=== PATIENT | male | born 1980 | race Caucasian/White ===

== ENCOUNTER 2024-08-23 17:48 | Inpatient (IN) | payer BC ==
[~2024-08-23] VITALS: Ht 188 cm; Wt 115.2 kg
[2024-08-23] MEDS ORDERED: heparin 10,000 units/1 ML INJ IV ONE (18:00)
[2024-08-23] MEDS: heparin 25,000 UNIT/250ml bag 250 ML IV PRN (18:10)
[2024-08-23] MEDS: HEPARIN DRIP INITAL BOLUS --- DO NOT GIVE/ORDER MC ONE (18:11)
[2024-08-23 18:34] LABS: BASOPHILS # (AUTO) 0.1 X10'3 (0-0.2); BASOPHILS % (AUTO) 0.7 % (0-1); EOSINOPHILS # (AUTO) 0.1 X10'3 (0-0.9); EOSINOPHILS % (AUTO) 0.7 % (0-6); HEMATOCRIT 46.5 % (42.0-52.0); HEMOGLOBIN 16.2 g/dl (14.0-17.9); LYMPHOCYTES # (AUTO) 1.3 X10'3 (1.1-4.8); LYMPHOCYTES % (AUTO) 15.5 % (21-51); MEAN CORPUSCULAR HEMOGLOBIN 34.6 PG (27.0-31.0); MEAN CORPUSCULAR HGB CONC 34.9 g/dL (33.0-36.5); MEAN CORPUSCULAR VOLUME 99.1 FL (78-98); MEAN PLATELET VOLUME 7.9 FL (7.4-10.4); MONOCYTES # (AUTO) 0.5 X10'3 (0-0.9); MONOCYTES % (AUTO) 6.5 % (2-12); NEUTROPHILS # (AUTO) 6.4 X10'3 (1.8-7.7); NEUTROPHILS % (AUTO) 76.6 % (42-75); PLATELET COUNT 127 X10'3 (140-440); RED BLOOD COUNT 4.69 X10'6 (4.70-6.10); RED CELL DISTRIBUTION WIDTH 13.7 % (11.5-14.5); WHITE BLOOD COUNT 8.3 X10'3 (4.5-11.0)
--- NOTE | 2024-08-23 18:45 | Physician Documentation ---
History of Present Illness ~ Chief Complaint: Chest Pain Stated Complaint: NSTEMI TRANSFER Time Seen by MD: 18:34 HPI Patient presents to the emergency room as transfer from [facility] for NSTEMI. He was states he woke up this morning began have if chest pain shortly then after. He was states he had a hard weekend drinking significant amount of alcohol. He does smoke and it was high blood pressure. No current chest pain. Patient placed on aspirin and heparin for transfer. Medication Reconciliation Allergies: Coded Allergies: No Known Allergies (Unverified , 08/23/24) Scheduled Amlodipine Besylate/Benazepril 10/40 MG* (Amlodipine-Benazepril 10/40 MG*), 1 CAP PO DAILY, (Reported) Anastrozole (Anastrozole), 1 TAB PO DAILY, (Reported) Chlorthalidone (Chlorthalidone), 1 TAB PO DAILY, (Reported) Clonidine HCl (Clonidine HCl), 1 TAB PO DAILY, (Reported) Duloxetine Hcl* (Cymbalta*), 1 CAP PO DAILY, (Reported) Omeprazole (Prilosec), 1 CAP PO DAILY, (Reported) Tadalafil* (Cialis*), 1 TAB PO DAILY, (Reported) Review of Systems ROS All review of systems negative except as per HPI Physical Exam Vital Signs: Temperature: 98.7, Heart Rate: 103, Respiratory Rate: 20, BP: 129/100, Pulse Oximetry: 96, Weight: 118.000 Oxygen Flow Rate: 0 Physical Exam General: Patient is awake, alert, oriented x4 in no acute distress and well appearing.~ Head: Normocephalic and atraumatic. Eyes: Conjunctival normal. EOMI. PERRL. ENT: Mucous membranes moist. Neck: Supple, trachea is midline. Chest: Clear to auscultation bilaterally without rales, rhonchi, or wheezes. There is no accessory muscle use or retractions. Cardiac: Tachycardic and regular without murmurs, gallops, or rubs. Abd: Soft, nondistended, nontender, with normoactive bowel sounds. No guarding, rebound, or rigidity. Extremities: Normal strength. Normal range of motion. No deformities or edema. No calf tenderness to palpation Progress Results/Orders Results/Orders Orders - CLIFTON SANCHEZ MD Hospitalist (08/23/24 18:48) Fill Out Med Reconciliation (08/23/24 18:48) Cardiac Ptt (08/24/24 00:10) Medications Received in ER Medications (Trade) Dose Ordered Sig/Christa Route PRN Reason Start Time Stop Time Status Last Admin Dose Admin Heparin Sodium/ Dextrose 250 ml @ 10 mls/hr Q25H PRN IV TO MAINTAIN PTT WITHIN RANGE 08/23/24 18:05 08/23/24 18:10 10 MLS/HR Vital Signs 08/23/24 08/23/24 08/23/24 18:18 18:49 18:51 Temp 98.7 Pulse 103 100 Resp 20 15 19 B/P (MAP) 129/100 135/76 (95) Pulse Ox 96 96 O2 Flow Rate 0 Laboratory Tests Test 08/23/24 18:26 White Blood Count 8.3 Red Blood Count 4.69 L Hemoglobin 16.2 Hematocrit 46.5 Mean Corpuscular Volume 99.1 H Mean Corpuscular Hemoglobin 34.6 H Mean Corpuscular Hemoglobin Concent 34.9 Red Cell Distribution Width 13.7 Platelet Count 127 L Mean Platelet Volume 7.9 Neutrophils (%) (Auto) 76.6 H Lymphocytes (%) (Auto) 15.5 L Monocytes (%) (Auto) 6.5 Eosinophils (%) (Auto) 0.7 Basophils (%) (Auto) 0.7 Neutrophils # (Auto) 6.4 Lymphocytes # (Auto) 1.3 Monocytes # (Auto) 0.5 Eosinophils # (Auto) 0.1 Basophils # (Auto) 0.1 CBC Comment APTT (Heparin Protocol) 52 D-Dimer 0.40 D-Dimer Comment Coagulation Comments Sodium Level 134 L Potassium Level 3.2 L Chloride Level 97 L Carbon Dioxide Level 25.5 Anion Gap 12 Blood Urea Nitrogen 10 Creatinine 0.96 Estimated GFR/1.73 m2 85 BUN/Creatinine Ratio 10.4 Glucose Level 136 H Calcium Level 8.4 L Total Bilirubin 1.1 H Aspartate Amino Transf (AST/SGOT) 100 H Alanine Aminotransferase (ALT/SGPT) 69 Alkaline Phosphatase 92 Troponin I High Sensitivity 363 *H Pro-B-Type Natriuretic Peptide < 30 Total Protein 7.9 Albumin 3.7 Globulin 4.2 Albumin/Globulin Ratio 0.9 L Chemistry Comments EKG/XRAY/CT/US/VASC/MRI EKG : Additional Comment EKG interpreted by myself shows time of 18 30, rate 105, sinus tachycardia, normal axis, no ST changes Chest X-Ray : Additional Comments Exam: CHEST,SINGLE VIEW CHEST RADIOGRAPH Indication: CP Technique: Single frontal view of the chest was obtained COMPARISON: None FINDINGS: Lines and Tubes: None Lungs: Clear Pleura: No effusion. No pneumothorax. Cardiomediastinal contours: Unremarkable Bones: Unremarkable IMPRESSION: No abnormality. Medical Decision Making Findings Patient presented to the emergency room transferred from [facility] for NSTEMI. Differentials include but are not limited to ACS, pulmonary embolism, pneumothorax, musculoskeletal pain. Repeat labs confirm that patient does have elevated troponin. Heparin has been continued. EKG reassuring for no ST elevation. D-dimer reassuring. Departure Admitted to Inpatient Unit: yes, to hospitalist Impression: Primary Impression: NSTEMI (non-ST elevated myocardial infarction) Referrals: NO PRIMARY CARE PROVIDER (PCP) Critical Care Note Total Time (mins): 45 Critical Care Note The very real possibility of a deterioration of this patient's condition required the highest level of my preparedness for sudden, emergent intervention. I provided critical care services, which included medication orders, frequent reevaluations of the patient's condition and response to treatment, ordering and reviewing test results, and discussing the case with various consultants. Excl udes time spent performing separately billable procedures. The critical care time associated with the care of the patient was 45 minutes not counting procedures Signature Scribe Signature: No scribe Attestation: The note accurately reflects work and decisions made by me.Clifton Sanchez MD 08/23/24 20:00 CLIFTON SANCHEZ MD August 23, 2024 18:45
[2024-08-23 18:52] LABS: ALANINE AMINOTRANSFERASE 69 U/L (12-78); ALBUMIN 3.7 G/DL (3.4-5.0); ALBUMIN/GLOBULIN RATIO 0.9 (1.1-1.5); ALKALINE PHOSPHATASE 92 IU/L (46-116); ANION GAP 12 (8-16); ASPARTATE AMINO TRANSFERASE 100 U/L (10-37); BILIRUBIN,TOTAL 1.1 MG/DL (0.1-1.0); BLOOD UREA NITROGEN 10 MG/DL (7-18); BUN/CREATININE RATIO 10.4 (10.0-20.0); CALCIUM 8.4 MG/DL (8.5-10.1); CHLORIDE 97 MMOL/L (99-107); CREATININE 0.96 MG/DL (0.60-1.10); GLUCOSE 136 MG/DL (70-104); POTASSIUM 3.2 MMOL/L (3.5-5.1); SODIUM 134 MMOL/L (135-145); TOTAL CARBON DIOXIDE 25.5 MMOL/L (24-32); TOTAL PROTEIN 7.9 G/DL (6.4-8.2); eCRCL 115 ML/MIN; eGFR 85 ML/MIN
[2024-08-23] MEDS ORDERED: TADA5TAB2 PO (19:07)
[2024-08-23] MEDS ORDERED: OMEP40CA21 PO (19:07)
[2024-08-23] MEDS ORDERED: ANAS1TAB24 PO (19:07)
[2024-08-23] MEDS ORDERED: DULO-31 PO (19:07)
[2024-08-23] MEDS ORDERED: CHLO25TA10 PO (19:07)
[2024-08-23] MEDS ORDERED: CLON0.1T2 PO (19:07)
[2024-08-23] MEDS ORDERED: AMLO-139 PO (19:07)
--- NOTE | 2024-08-23 19:08 | RADIOLOGY REPORT ---
CHEST RADIOGRAPH Indication: CP Technique: Single frontal view of the chest was obtained COMPARISON: None FINDINGS: Lines and Tubes: None Lungs: Clear Pleura: No effusion. No pneumothorax. Cardiomediastinal contours: Unremarkable Bones: Unremarkable IMPRESSION: No abnormality.
[2024-08-23 19:11] LABS: PRO BRAIN NATRIURETIC PEPTIDE < 30 PG/ML (0-125)
[2024-08-23] MEDS: MESSAGE TO NURSING IV ONE ×2 (20:01→23:45)
[2024-08-23] MEDS ORDERED: ondansetron/PF 4mg/2ml inj IV PRN (20:05)
[2024-08-23] MEDS ORDERED: nitroGLYCERIN 0.4mg SUBLingual tab SL PRN (20:05)
[2024-08-23] MEDS ORDERED: potassium Cl 40MEQ/1/2NS 520ml 520 ML IV PRN (20:05)
[2024-08-23] MEDS ORDERED: magnesium sulf-water 4G/100mL 100 ML IV PRN (20:05)
[2024-08-23] MEDS ORDERED: magnesium Cl slow-release 64mg tablet PO PRN (20:05)
[2024-08-23] MEDS ORDERED: magnesium hydroxide 30ml (MOM) UD suspension PO PRN (20:05)
[2024-08-23] MEDS ORDERED: acetaminophen 325mg tablet PO PRN (20:05)
[2024-08-23] MEDS ORDERED: potassium Cl 20 mEq SR tablet PO PRN (20:05)
[2024-08-23] MEDS ORDERED: magnesium sulf-water 2g/50mL 50 ML IV PRN (20:05)
[2024-08-23] MEDS ORDERED: mag hydrox/Alum hydrox/simeth 30ml oral suspension PO PRN (20:05)
[2024-08-23] MEDS ORDERED: morphine 2 MG/ML inj. syringe IV PRN ×2 (20:05)
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
[2024-08-23 20:25] LABS: HEMOGLOBIN A1C 5.8 % (4.5-6.2)
[2024-08-23] MEDS ORDERED: haloperidol 5mg tablet PO PRN (20:25)
[2024-08-23] MEDS: diazepam 5mg tablet PO ONE (20:32)
[2024-08-23] MEDS: HEPARIN DRIP-CARDIAC**PHARMACIST-TO-DOSE IV SCH (20:33)
[2024-08-23] MEDS: atorvastatin 20mg tablet PO SCH (20:35)
[2024-08-23] MEDS: normal saline 1000ml 1,000 ML IV SCH (20:36)
[2024-08-23] MEDS: thiamine 100mg/ml 2ml inj. IV SCH (20:58)
[2024-08-23] MEDS: folic acid 1mg/0.2ml inj IV SCH (20:58)
[2024-08-23 21:35] VITALS: BP 145/88; PULSE 104; RESP 14; TEMP 97.7; O2SAT 96
[2024-08-24] VITALS (8 sets, daily range): BP systolic 121–157; BP diastolic 74–89; PULSE 91–105; RESP 14–20; TEMP 97–98.3; O2SAT 93–98
[2024-08-24] MEDS: diazepam inj 5 MG/ML inj. IV PRN (00:31)
[2024-08-24] MEDS: MESSAGE TO NURSING IV ONE ×4 (01:40→22:55)
[2024-08-24] MEDS: heparin 10,000 units/1 ML INJ IV PRN (01:56)
[2024-08-24 03:24] LABS: BASOPHILS # (AUTO) 0.1 X10'3 (0-0.2); BASOPHILS % (AUTO) 1.3 % (0-1); EOSINOPHILS # (AUTO) 0.2 X10'3 (0-0.9); EOSINOPHILS % (AUTO) 1.8 % (0-6); HEMATOCRIT 43.6 % (42.0-52.0); HEMOGLOBIN 15.2 g/dl (14.0-17.9); LYMPHOCYTES # (AUTO) 1.9 X10'3 (1.1-4.8); LYMPHOCYTES % (AUTO) 22.3 % (21-51); MEAN CORPUSCULAR HEMOGLOBIN 34.4 PG (27.0-31.0); MEAN CORPUSCULAR HGB CONC 34.7 g/dL (33.0-36.5); MEAN CORPUSCULAR VOLUME 99.2 FL (78-98); MEAN PLATELET VOLUME 8.8 FL (7.4-10.4); MONOCYTES # (AUTO) 0.6 X10'3 (0-0.9); MONOCYTES % (AUTO) 7.5 % (2-12); NEUTROPHILS # (AUTO) 5.7 X10'3 (1.8-7.7); NEUTROPHILS % (AUTO) 67.1 % (42-75); PLATELET COUNT 94 X10'3 (140-440); RED CELL DISTRIBUTION WIDTH 13.3 % (11.5-14.5); WHITE BLOOD COUNT 8.5 X10'3 (4.5-11.0)
[2024-08-24 03:40] LABS: ALANINE AMINOTRANSFERASE 63 U/L (12-78); ALBUMIN 3.7 G/DL (3.4-5.0); ALBUMIN/GLOBULIN RATIO 0.9 (1.1-1.5); ALKALINE PHOSPHATASE 90 IU/L (46-116); AMYLASE 54 U/L (25-115); ANION GAP 10 (8-16); ASPARTATE AMINO TRANSFERASE 91 U/L (10-37); BILIRUBIN,TOTAL 1.7 MG/DL (0.1-1.0); BLOOD UREA NITROGEN 8 MG/DL (7-18); BUN/CREATININE RATIO 8.5 (10.0-20.0); CALCIUM 8.6 MG/DL (8.5-10.1); CHLORIDE 101 MMOL/L (99-107); CREATININE 0.94 MG/DL (0.60-1.10); GLUCOSE 120 MG/DL (70-104); LIPASE 36 U/L (16-77); MAGNESIUM 1.5 MG/DL (1.5-2.4); PHOSPHORUS 2.5 MG/DL (2.3-4.5); SODIUM 138 MMOL/L (135-145); TOTAL CARBON DIOXIDE 27.1 MMOL/L (24-32); TOTAL PROTEIN 7.8 G/DL (6.4-8.2); eCRCL 118 ML/MIN; eGFR 88 ML/MIN
[2024-08-24] MEDS: potassium Cl 20 mEq SR tablet PO STA (04:19)
[2024-08-24] MEDS: K and/or MAG REPLACEMENT MC SCH (08:00)
--- NOTE | 2024-08-24 08:13 | ELECTROCARDIOGRAPH REPORT ---
[facility] Test Date: 2024-08-23 Test Time: 18:30:59 Pat Name: JELANI CONDON Department: EMERGENCY ROOM Room: [place] [address] A Gender: M Spindraw Operator: GEOVANNA : 1980 Requested By: FRANK CARNEY Order Number: [id number] Reading MD: Dr. Ag Rush Measurements Intervals [place] Rate: 105 P: 16 NH: 142 QRS: 53 QRSD: 98 T: 0 QT: 364 QTc: 482 Interpretive Statements Sinus tachycardia Borderline prolonged QT interval Electronically Signed On 08-25-2024 15:44:[address] Ag Rush Please click the below link to view image of tracing.
[2024-08-24] MEDS: cloNIDine 0.1 mg tablet PO SCH (08:49)
[2024-08-24] MEDS: chlorthalidone 25mg tablet PO SCH (08:50)
[2024-08-24] MEDS: lisinopril 20mg tablet PO SCH (08:50)
[2024-08-24] MEDS: aspirin 81mg, enteric-coated 1 TAB TABLET.DR PO SCH (08:51)
[2024-08-24] MEDS: amLODIPine 5mg tablet PO SCH (08:51)
[2024-08-24] MEDS: carVEDilol 3.125mg tablet PO SCH (08:51)
[2024-08-24] MEDS: docusate sod 100mg capsule PO SCH (08:52)
[2024-08-24] MEDS: duloxetine 30mg CAPSULE.DR PO SCH (08:52)
[2024-08-24 10:15] LABS: BILIRUBIN,URINE NEGATIVE (Neg); COLOR,URINE YELLOW (Yellow); GLUCOSE, URINE NEGATIVE (Neg); KETONES,URINE NEGATIVE (Neg); LEUKOCYTE ESTERASE ,URINE NEGATIVE (Neg); OCCULT BLOOD,URINE NEGATIVE (Neg); PH,URINE 7.5 (4.8-8.0); PROTEIN,URINE NEGATIVE (Neg)
[2024-08-24 10:30] LABS: NITRITES, URINE NEGATIVE (Neg); UA COLLECTION TYPE VOIDED
[2024-08-24 10:31] LABS: CLARITY,URINE CLOUDY (Clear)
[2024-08-24 10:38] LABS: SQUAMOUS EPITHELIAL CELL,UR FEW /LPF (FEW)
[2024-08-24 10:39] LABS: BACTERIA,URINE NONE SEEN /HPF (Neg); RBC,URINE NONE SEEN /HPF (0-2)
[2024-08-24 10:40] LABS: WBC,URINE NONE SEEN /HPF (0-4)
[2024-08-24] MEDS: potassium Cl 20 mEq SR tablet PO PRN (10:50)
[2024-08-24 11:06] LABS: URINE AMPHETAMINE SCREEN NEGATIVE (Neg); URINE BARBITUATE SCREEN NEGATIVE (Neg); URINE BENZODIAZEPINES SCREEN POSITIVE (Neg); URINE CANNABINOID SCREEN NEGATIVE (Neg); URINE COCAINE SCREEN NEGATIVE (Neg); URINE METHADONE SCREEN NEGATIVE (Neg); URINE OPIATE SCREEN NEGATIVE (Neg); URINE PHENCYCLIDINE SCREEN NEGATIVE (Neg)
[2024-08-24] MEDS ORDERED: iohexol 350MG/ML 100ml bottle IV ONE (13:10)
[2024-08-24 13:21] LABS: INR 1.3 INR; PROTHROMBIN TIME 12.8 SECONDS (9.0-12.0)
--- NOTE | 2024-08-24 13:37 | RADIOLOGY REPORT ---
INDICATION: Abdominal pain TECHNIQUE: Multiple real-time sonographic images of the abdomen were obtained. COMPARISON: None FINDINGS: The liver is heterogeneous in echogenicity. The liver measures 22cm. No intrahepatic saravanan iary ductal dilatation is noted. The gallbladder wall measures 0.3 cm and is unremarkable. No gallstones or sludge is seen. The commo n duct measures 0.3 cm and is unremarkable. No pericholecystic fluid is noted. The right kidney measures 15cm. No hydronephrosis. The pancreas is not well visualized due to obscuration from bowel gas. The visualized portions of the IVC and aorta are grossly unremarkable. IMPRESSION: Hepatic steatosis. Hepatomegaly
--- NOTE | 2024-08-24 14:39 | RADIOLOGY REPORT ---
EXAM: CT CTA CHEST PE W/ IV CONTRAST History: SOB Comparison Study: None TECHNIQUE: A digital label maker image was obtained. During the uneventful, intravenous administration of c ontrast material, multislice data acquisition was obtained through the chest. 3-D postprocessing is performed by technologist including MIP imaging Radiation Dose : CTDI vol 31.03 mGy, DLP 1027.92 mGy*cm. Findings: Lungs: The lungs are clear. Pleura: Unremarkable Heart/Great vessels: No cardiomegaly or pericardial effusion. No pulmonary embolism, aneurysm, or dis section. Mediastinum: Unremarkable Soft tissues/Bones: Unremarkable Mildly prominent gastroesophageal/ gastrosplenic lymph nodes. The partially visualized upper abdomen is within normal limits. Impression: 1. No evidence of a pulmonary embolism, aneurysm, or dissection. 2. Mildly prominent gastroesophageal / gastrosplenic lymph nodes, nonspecific.
--- NOTE | 2024-08-24 14:45 | CARDIOLOGY REPORT ---
APPROVED REPORT EXAM: Comprehensive 2D, Doppler, and color-flow Echocardiogram. Patient Location: 3018 A Blood Pressure: 157/89 mmHg Heart Rate: 102 bpm Rhythm: SINUS TACHYCARDIA Indications CHEST PAIN HS TROPONIN 363, 345, 350, 337 HYPERTENSION ALCOHOL USE Multiskill Operator: none Previous echo: none 2D Dimensions RVDd 3.5 cm LA Diam4.7 cm IVSd 1.2 (0.7-1.1cm) LVDd 5.3 cm PWd 1.3 (0.7-1.1cm) IVSs 1.3 (0.8-1.2cm) LVDs 3.8 (2.5-4.0cm) PWs 2.0 (0.8-1.2cm) LVOT Diameter 2.18 (1.8-2.4cm) LVEF(%) 55.4 (>50%) Ao Asc Diam.3.45 cmFS (%) 29.1 % SV 74.9 ml CO 7.4 L/min M-Mode Dimensions Left Atrium(MM) 3.91 (2.5-4.0cm) IVSd 0.91 (0.7-1.1cm) LVDd 5.26 (4.0-5.6cm) Aortic Root 3.83 (2.2-3.7cm) PWd 1.26 (0.7-1.1cm) Aortic Cusp Exc 2.22 (1.5-2.0cm) IVSs 1.39 cm MV EPSS 0.6 (<0.5cm) LVDs 3.70 (2.0-3.8cm) FS (%) 30 % PWs 1.87 cm ESV(Teich) 58.0 ml LVEF(%) 56 (>50%) Biplane 2D LA Volumes LA ESV Index 23.46 mL/m2 Aortic Valve AoV Peak Javi. 137.8 cm/s AoV VTI 20.4 cm AO Peak GR. 7.6 mmHg AO Mean GR. 4 mmHg LVOT VTI 24.99 cm LVOT Peak Javi. 124.3 cm/s ALEX(VTI)/BSA 4.59 cm2/m2 ALEX (VTI) 4.59 cm2 Mitral Valve MV E Velocity 64.0 cm/s MV Peak Gr. 4 mmHg MV DECEL TIME 166 ms MV A Velocity 84.5 cm/s MV PHT 38 ms E/A Ratio 0.8 MVA (PHT) 5.79 cm2 MV VGdo343.0 cm/s TDI Medial E' P. V 11.96 cm/s E/Medial E' 5.4 Pulmonary Vein S1 Velocity 68.6 cm/s D2 Velocity 45.4 cm/s PVa Vhzwjyjv93.9 cm/s PVa Tauhhbza70 msec LEFT VENTRICLE Normal LV size and function. Mild concentric hypertrophy. Overall LVEF is 55-60%. RIGHT VENTRICLE RV is normal size and function. ATRIA LA size is normal. AORTIC VALVE Trileaflet AV appears mildly sclerotic without stenosis. Trivial insufficiency. MITRAL VALVE Mild MV annular calcification without stenosis. Trace regurgitation. TRICUSPID VALVE TV appears structurally normal with trace regurgitation. PULMONIC VALVE Normal PV without stenosis, physiologic insufficiency. GREAT VESSELS Aortic root is dilated. The ascending aorta is normal in size. PERICARDIUM Normal pericardium. No effusion. Other Information Study Quality: Adequate Conclusion Overall LVEF is 55-60%. Normal LV size and function. Mild concentric hypertrophy. RV is normal size and function. Trileaflet AV appears mildly sclerotic without stenosis. Trivial insufficiency. Mild MV annular calcification without stenosis. Trace regurgitation. TV appears structurally normal with trace regurgitation. Normal PV without stenosis, physiologic insufficiency. Normal pericardium. No effusion.
[2024-08-24] MEDS: heparin 25,000 UNIT/250ml bag 250 ML IV PRN (16:21)
--- NOTE | 2024-08-24 16:34 | PROGRESS NOTE- Residence ---
Progress Note - Resident Providers to CC Resident Creating Document: LAVERNE BARGER, REINIER ~ Central Line/PICC still needed: No Rivera-Non Protocol Rivera Indications Met/Not Met: F/C Indications Not Met Antibiotic Timeout Antibiotic Ordered?: No Subjective Patient was comfortable at bedside. Denies anymore chest pain after he had received the Valium last night. States that he is anxious but no more chest tightness. Objective Vital Signs Date Time Temp Pulse Resp B/P (MAP) Pulse Ox O2 Delivery O2 Flow Rate FiO2 08/24/24 12:56 18 95 Room Air 08/24/24 11:00 97.7 95 121/74 (90) 08/24/24 08:00 0.0 Result Diagram: 08/24/24 0300 08/24/24 0725 General: Awake and Alert, no acute distress. HEENT: Conjunctiva pink, Sclera clear, Mucus Membranes moist. Resp: Unlabored. Lungs clear to auscultation bilaterally. Diminished basilar breath sounds Heart: Sinus tachycardia, normal S1 and S2 without murmur, rub or gallop. Abdomen: Soft and non tender no organomegaly Extremities: No cyanosis,clubbing or edema. Skin: Warm and Dry. Spider angioma across the neck Coagulation Studies Laboratory Tests Test 08/23/24 18:26 08/24/24 12:36 08/24/24 14:06 D-Dimer 0.40 MG/L FEU (0-0.50) D-Dimer Comment Prothrombin Time 12.8 SECONDS (9.0-12.0) H INR International Normalized Ratio 1.3 INR APTT (Heparin Protocol) 43 SECONDS (45-60) L Coagulation Comments Assessment Assessment 43-year-old male patient transferred from [place] for chest pain and possible NSTEMI. Plan Plan 1. Troponinemia: NSTEMI; PE to be ruled out 08/23/2024: EKG without ST elevation. Showing: Sinus tachycardia with heart rate of 105, normal axis deviation, normal MN and QRS interval. Troponin levels 363. Follow-up trending troponins. Follow-up echocardiogram. Follow-up lipid panel and hemoglobin A1c. The patient received 324 mg of aspirin at [facility]. Aspirin 81 mg daily. Atorvastatin 80 mg daily. Carvedilol 3.125 mg b.i.d. Nitroglycerin 0.4 mg sublingual p.r.n. Started on heparin drip with the other hospital, Continue heparin drip. Cardiology consult in a.m. NS at 100 mL/hour. 08/24/2024: - downtrending troponins - EKG continues to remain benign - consulted cardiology; continue the heparin drip. Lexiscan in a.m. NPO after midnight - CTA ruled out pulmonary embolism but revealed presence nonspecific GE and gastric lymphadenopathy - heart healthy diet -continue telemetry monitoring - p.r.n. NTG for recurrent chest pain 2. Alcohol use disorder: Alcohol withdrawal: 08/23/2024: The patient endorses that he has been drinking approximately 24 beers per week. The last time he drank was yesterday. Diazepam 10 mg once. Alcohol withdrawal protocol in place. Diazepam 10 mg IV q.3h PRN. Haloperidol 5 mg p.o. q.4h. Thiamine 200 mg IV t.i.d. x3 days. Then thiamine 100 mg p.o. daily. Folic acid 1 mg IV daily x3 days. Then folic acid 1 mg p.o. daily. Seizure precautions. Substance use navigator consulted. financial services auditor consulted. 08/24/2024: No further acute withdrawals noted. - received one dose Valium at 4:00 a.m. yesterday and has not required p.r.n. benzodiazepines anymore - continue folic acid and thiamine; continue alcohol withdrawal protocol 3. Hepatic steatosis: Spider angioma Albumin, INR normal. Mildly decreased platelets likely secondary to the heparin drip Abdominal ultrasound reveals hepatic steatosis Recommend carb controlled diet, alcohol cessation Recommend statin therapy at discharge 4. Hypertension: Carvedilol 3.125 mg daily. We will continue amlodipine/benazepril 10/40 mg, chlorthalidone 25 mg, clonidine 0.1 mg daily. 08/24/2024: Blood pressure well-controlled - current medication of amlodipine 10 mg, chlorthalidone, clonidine 0.1 mg, and Coreg 3.125 mg b.i.d. - we will change clonidine to p.r.n. 5. Anxiety: We will continue his home medication duloxetine 30 mg daily. 6. Hypogonadism: Use of anastrozole- apparent use for gynecomastia from unknown cause Home medication of testosterone 7. Obesity: On Zepbound at home Code status: Full code DVT prophylaxis: The patient is currently on heparin drip Analgesia/sedation: Diazepam, morphine, haloperidol Line/tube: PIV GI prophylaxis: None Nutrition: NPO after midnight PT: Ordered Prognosis: Guarded Laverne Barger PGY2, Internal medicine resident Addendum had wells score of 4.5, cta chest neg for PE concern for poss cirrhosis, alcohol induced; low plts, elevated inr, spider angiomata uses off label testosterone, anastrazole Date of Service: August 24, 2024 Billing Provider: HARMEET FREDERICK MD Common Visit Codes: [id number] INP/OBS CARE(HIGH) LAVERNE BARGER, RES August 24, 2024 16:34 HARMEET FREDERICK MD August 24, 2024 19:44
[2024-08-24] MEDS ORDERED: cloNIDine 0.1 mg tablet PO PRN (16:55)
[2024-08-24] MEDS ORDERED: nitroGLYCERIN 0.4mg SUBLingual tab SL PRN (17:55)
[2024-08-24] MEDS ORDERED: metoprolol tartrate 1mg/ml inj IV PRN (17:55)
[2024-08-24] MEDS ORDERED: aminophylline 500mg/20ml vial IV PRN (17:55)
[2024-08-24 18:32] LABS: CHOL/HDL RATIO 4.3 (0.00-4.99); CHOLESTEROL 126 MG/DL (0-200); HDL CHOLESTEROL 29 MG/DL (35-60); LDL CHOLESTEROL 63 MG/DL (50-100); TRIGLYCERIDES 220 MG/DL (20-135)
[2024-08-25] VITALS (11 sets, daily range): BP systolic 118–143; BP diastolic 73–86; PULSE 89–115; RESP 13–18; TEMP 97.7–97.9; O2SAT 94–99
[2024-08-25 03:25] LABS: BASOPHILS # (AUTO) 0.1 X10'3 (0-0.2); BASOPHILS % (AUTO) 0.7 % (0-1); EOSINOPHILS # (AUTO) 0.3 X10'3 (0-0.9); EOSINOPHILS % (AUTO) 3.9 % (0-6); LYMPHOCYTES # (AUTO) 1.6 X10'3 (1.1-4.8); MEAN CORPUSCULAR HEMOGLOBIN 34.6 PG (27.0-31.0); MEAN CORPUSCULAR HGB CONC 34.8 g/dL (33.0-36.5); MEAN CORPUSCULAR VOLUME 99.4 FL (78-98); MEAN PLATELET VOLUME 9.8 FL (7.4-10.4); MONOCYTES # (AUTO) 0.5 X10'3 (0-0.9); MONOCYTES % (AUTO) 5.9 % (2-12); NEUTROPHILS # (AUTO) 5.6 X10'3 (1.8-7.7); NEUTROPHILS % (AUTO) 69.5 % (42-75); PLATELET COUNT 79 X10'3 (140-440); RED BLOOD COUNT 4.62 X10'6 (4.70-6.10); RED CELL DISTRIBUTION WIDTH 13.5 % (11.5-14.5); WHITE BLOOD COUNT 8.1 X10'3 (4.5-11.0)
[2024-08-25 03:37] LABS: ALANINE AMINOTRANSFERASE 54 U/L (12-78); ALBUMIN 3.6 G/DL (3.4-5.0); ALBUMIN/GLOBULIN RATIO 0.9 (1.1-1.5); ALKALINE PHOSPHATASE 93 IU/L (46-116); AMYLASE 61 U/L (25-115); ANION GAP 9 (8-16); ASPARTATE AMINO TRANSFERASE 77 U/L (10-37); BILIRUBIN,TOTAL 1.1 MG/DL (0.1-1.0); BLOOD UREA NITROGEN 9 MG/DL (7-18); BUN/CREATININE RATIO 9.8 (10.0-20.0); CALCIUM 8.6 MG/DL (8.5-10.1); CHLORIDE 102 MMOL/L (99-107); CREATININE 0.92 MG/DL (0.60-1.10); GLUCOSE 114 MG/DL (70-104); LIPASE 49 U/L (16-77); MAGNESIUM 1.8 MG/DL (1.5-2.4); PHOSPHORUS 2.5 MG/DL (2.3-4.5); POTASSIUM 3.4 MMOL/L (3.5-5.1); SODIUM 137 MMOL/L (135-145); TOTAL CARBON DIOXIDE 26.4 MMOL/L (24-32); TOTAL PROTEIN 7.7 G/DL (6.4-8.2); eCRCL 120 ML/MIN; eGFR 90 ML/MIN
[2024-08-25] MEDS: MESSAGE TO NURSING IV ONE (04:23)
[2024-08-25] MEDS: regadenoson 0.4mg/5ml syringe IV PRN (09:56)
--- NOTE | 2024-08-25 12:15 | RADIOLOGY REPORT ---
Procedure: NM NM JANESSA SCAN Exam Date: 08/25/2024 09:19 AM Reason for study/Clinical History: Chest pain Comparison Study: None Myocardial Perfusion Study with SPECT Technique: The patient received an intravenous injection of 8.7 mCi of technetium-99m sestamibi whil e at rest. After a short delay, SPECT tomographic images of the heart were obtained. The patient th en went to the stress lab where they received an intravenous infusion of 0.[address] andard protocol. 37.7 mCi of technetium-99m sestamibi was injected intravenously immediately after the start of the lexiscan infusion. Gated SPECT tomographic images of the heart were acquired and pr ocessed. Findings: Reversible defect in the septum. Reversible defect of the anterior wall near the cardiac base. Fixed inferior wall defect. Inferolateral reversible defect. End-diastolic volume 120 cc. End systolic volume 69 cc The left ventricular ejection fraction is 46 %. (normal greater than 50%) Global hypokinesis. Impression: 1. Reversible defects of the septum, inferolateral wall, anterior wall near the cardiac base. 2. Fixed inferior wall defect. 3. EF of 46%. 4. Global hypokinesis.
[2024-08-25] MEDS: enoxaparin 40mg/0.4ml syringe SUBCUT ONE (16:51)
[2024-08-25] MEDS ORDERED: NITR0.4T48 SL (17:55)
--- NOTE | 2024-08-25 18:06 | DISCHARGE SUMMARY-Residence ---
Discharge Summary Providers to Resident Creating Document: ULICES BARGER, REINIER ~ Discharge Summary Admission Diagnosis: NSTEMI Hospital Course DATE OF ADMISSION: 08/23/2024 DATE OF DISCHARGE: 08/24/2024 Discharge Diagnosis\Comment: NSTEMI, alcohol withdrawal Hepatic steatosis PMH of hypertension, anxiety, hypogonadism and obesity Operations\Procedures: None Consultants: Cardiology- Dr. Whiteside Complications: None Condition on DC: Stable for transfer New Medications: Nitroglycerin (Nitroglycerin) 0.4 Mg Tab.subl 0.4 MG SL PRNCP PRN for chest pain for 90 Days, #90 TAB Continued Medications: Amlodipine Besylate/Benazepril 10/40 MG* (Amlodipine-Benazepril 10/40 MG*) 10 Mg/40 Mg Capsule 1 CAP PO DAILY for 30 Days, #30 CAP Anastrozole (Anastrozole) 1 Mg Tablet 1 TAB PO DAILY for 30 Days, #30 TAB 0 Refills Chlorthalidone (Chlorthalidone) 25 Mg Tablet 1 TAB PO DAILY for 30 Days, #30 TAB 0 Refills Clonidine HCl (Clonidine HCl) 0.1 Mg Tablet 1 TAB PO DAILY for 30 Days, #30 TAB 0 Refills Duloxetine Hcl* (Cymbalta*) 30 Mg Capsule.dr 1 CAP PO DAILY for 30 Days, #30 CAP 0 Refills Omeprazole (Prilosec) 40 Mg Capsule 1 CAP PO DAILY for 30 Days, #30 CAP Tadalafil* (Cialis*) 5 Mg Tablet 1 TAB PO DAILY for erectile dysfunction for 30 Days, #30 TAB Discharge Summary: 43-year-old male patient was transferred from [place] after it presented for acute onset chest pain. He was transferred for further evaluation and management of an NSTEMI. Chest pain started in the morning after he had woken up feeling nauseous, lasted for at least 6 hours and was relieved with Valium. Patient has alcohol use disorder, drank about 12 beers the night before the symptoms onset. His initial troponin presentation at [facility] was in the 500s, decreased in our hospital from 375 and downgrade after. He was started on a heparin drip from [facility] and continued at our hospital. EKG reveals sinus tachycardia on admission. After initial management with aspirin, statin and a beta juan antonio, he was monitored on the telemetry. Differential diagnosis of troponinemia including PE with a Wells score of 4.5 and cardiac etiology for NSTEMI was evaluated. A CTA chest revealed nonspecific findings of GE lymphadenopathy and gastric lymphadenopathy but ruled out presence of a pulmonary embolism. A Lexiscan performed revealed reversible cardiac defect in the anterolateral, septal, and inferior lateral wall. Global hypokinesis with an EF of 46% and fixed inferior wall defect findings additionally noted on the Lexiscan. Cardiology was consulted. Patient was adamant to be evaluated outpatient due to underlying anxiety and alcohol withdrawal that has been bothering him. Increased dosing of benzodiazepines and control of alcohol withdrawal was given by the patient denied as he stated that he would like to get further evaluation outpatient at this time. Cardiology team who is agreeable with the plan after meeting with the patient to discharge back home. Advised to discharge the patient only in the nitro p.r.n.. Hence, the patient was discharged back home with no services and no new medications except the nitro p.r.n. for chest pain. Additionally, discussed regarding the risk of anastrozole and testosterone. Discussed regarding no medical indication at this time to fit for the use of anastrozole but the patient would like to continue his own meds. Advised at discharge: Kindly obtain a referral from PCP to a insulation board back tender as soon as possible. Maintain a carb healthy diet. Do not perform exertional activities that are significant raising her heart rate to maximal range. Completely abstain from smoking and alcohol. If you do develop any further symptoms of chest pain, dizziness or syncopal attack, kindly returned back to the nearest ER. Physical exam at discharge: General: Awake and Alert, anxious appearing HEENT: Conjunctiva pink, Sclera clear, Mucus Membranes moist. Resp: Unlabored. Lungs clear to auscultation bilaterally. Heart: Sinus tachycardia, normal S1 and S2 without murmur, rub or gallop. Abdomen: Soft and non tender no organomegaly Extremities: No cyanosis,clubbing or edema. Skin: Warm and Dry. Labs at discharge: WBC 8.1, RBC 4.6, hemoglobin 16, platelets 79 Sodium 137, potassium 3.4, chloride 102, bicarb 26.4, BUN nine, creatinine 0.9, blood glucose 114, calcium 8.6, phosphorus 2.5, RBC 1.8, total bilirubin 1.1, AST 77, ALT 54, alkaline phosphatase 93, total protein 7.7, albumin 3.6 Medications at discharge: Nitro 0.4 mg p.r.n., amlodipine/benazepril 10/40 mg, clonidine 0.1 mg daily, chlorthalidone 25 mg, Prilosec, Cialis, duloxetine, and anastrozole 1 mg daily. Home medication of testosterone *Problems/Diagnosis: (1) NSTEMI (non-ST elevated myocardial infarction) Status: Acute Total Time Spent on D/C: Up to 30 Minutes Counseling Services Smoking & Tobacco Cessation: 3-10 Minutes Date of Service: August 25, 2024 Billing Provider: HARMEET FREDERICK MD Common Visit Codes: 90397-RDJ/OBS DISCH DAY >30min ULICES BARGER RES August 25, 2024 18:06 HARMEET FREDERICK MD August 25, 2024 22:14
--- NOTE | 2024-08-25 18:38 | CONSULTATION REPORT ---
Cardiac Consultation Report Providers to CC ~ Subjective Subjective Cardiology consultation: Abnormal nuclear stress test. Patient was transferred here from [facility] as he had neck pain. Troponins were 0.3. He was transferred on 08/23. He had a Lexiscan today that was reported as abnormal with inferior wall reversed defect ; small septal segment reversible I reviewed the images and that seems to be the case. He did not have any angina pectoris during it. He never does have angina pectoris with any exertion he does have emotional tightness in the chest however he thinks that maybe panic as he has had panic attacks before. At this time he and his , who works for a physician in [employer], trying to get and he is on hormonal therapy to assist that. He has treated hypertension and hypotestosteronism. General cares at [facility]. Medications Prilosec Cialis anastrozole chlorthalidone amlodipine with benazepril Cymbalta clonidine. He has history of recreational drug use and excessive alcohol use. Objective Vitals Vital Signs Date Time Temp Pulse Resp B/P (MAP) Pulse Ox O2 Delivery O2 Flow Rate FiO2 08/25/24 15:00 97.9 95 13 121/73 (89) 94 Room Air 08/24/24 08:00 0.0 Lab Results: 08/25/24 0300 08/25/24 0300 Objective Carotid no bruit chest clear to auscultation percussion heart no murmur no S3 gallop no rub abdomen active bowel sounds no bruits pulses plus two upper and lower extremities no edema ocular motion intact no nystagmus no tremors speech fluent. When I came on the floor patient was ambulating in the hallway. Desirous to go home all day. Coagulation Studies Laboratory Tests Test 08/23/24 18:26 08/24/24 12:36 08/25/24 03:00 D-Dimer 0.40 MG/L FEU (0-0.50) D-Dimer Comment Prothrombin Time 12.8 SECONDS (9.0-12.0) H INR International Normalized Ratio 1.3 INR APTT (Heparin Protocol) 40 SECONDS (45-60) L Coagulation Comments Other Results Echocardiogram mild left ventricular hypertrophy otherwise unremarkable. Lexiscan as per his report. Troponin stable at 0.30. Electrocardiogram stable with nonspecific ST-T changes. Problem\Assessment\Plan Additional Plan Impression: Chronic cardiomyopathy with abnormal Lexiscan. Emotional induced angina. With exertion. Patient very desirous to go home. I had a half an hour discussion of risks benefits alternatives diagnostic angiography nitroglycerin use p.r.n. follow-up in the office. And he and his would like to go home. Recommendation: Discharge with nitroglycerin p.r.n. use. Absolutely no alcohol and recreational drug use. Follow up with primary care. If he has recurrent nitroglycerin use he should reconsider having it diagnostic coronary angiogram. If they desire I can see him in the office in follow-up in the future. Copy of dictation to [facility]; copy to my office. GABRIEL HARP MD August 25, 2024 18:38
[2024-08-25] MEDS ORDERED: LORazepam 1 MG tablet PO PRN (20:25)
[2024-08-27] MEDS ORDERED: thiamine 100mg tablet PO SCH (08:00)
[2024-08-27] MEDS ORDERED: folic acid 1mg tablet PO SCH (08:00)
[2024-08-27] MEDS ORDERED: LORazepam 1 MG tablet PO PRN (20:25)
== END 2024-08-25 19:30 | disposition home or self-care (01) | DRG 281 ==
LOC: ER 17:50 → ED HOLD 20:08 → PCU 3S 21:25
PROVIDERS: ADMIT Surgery Surgical Critical Care; ATTEND Internal Medicine
PROC: B32T1ZZ Computerized Tomography (CT Scan) of Left Pulmonary Artery using Low Osmolar Contrast (ICD-10-PCS; 2024-08-24)
PROC: B3201ZZ Computerized Tomography (CT Scan) of Thoracic Aorta using Low Osmolar Contrast (ICD-10-PCS; 2024-08-24)
PROC: B32S1ZZ Computerized Tomography (CT Scan) of Right Pulmonary Artery using Low Osmolar Contrast (ICD-10-PCS; 2024-08-24)
PROC: 4A02XM4 Measurement of Cardiac Total Activity, External Approach (ICD-10-PCS; principal; 2024-08-25)
PROC: 3E033HZ Introduction of Radioactive Substance into Peripheral Vein, Percutaneous Approach (ICD-10-PCS; 2024-08-25)
DX: I21.4 Non-ST elevation (NSTEMI) myocardial infarction (principal); F10.939 Alcohol use, unspecified with withdrawal, unspecified; I10 Essential (primary) hypertension; Z79.899 Other long term (current) drug therapy; F32.A Depression, unspecified; F41.9 Anxiety disorder, unspecified; K76.0 Fatty (change of) liver, not elsewhere classified; I78.1 Nevus, non-neoplastic; E66.9 Obesity, unspecified; Z68.32 Body mass index [BMI] 32.0-32.9, adult
CPT/HCPCS: 36415; 71045; 71275; 76700; 78452; 80053; 80061; 80305; 81001; 82150; 83036; 83690; 83735; 83880; 84100; 84132; 84443; 84484; 85025; 85379; 85610; 85730; 87081; 93005; 93017; 93306; 99291; A9500; G0378; J1644; J1650; J2785; J3360; J3411; J3490; J7030; Q9967